=== PATIENT | male | born 1965 | race Caucasian/White ===

== ENCOUNTER → 2019-05-12 | Outpatient (CLI) | payer OTHER, MEDICARE ==
[~2019-05-12] MED LIST: BACLOFEN20 MG PO; CLARITIN10 MG PO; COMPAZINE IV; ENOXAPARIN80 MG/0.1 SUBQ; FISH OIL 1,001000 M2 PO; LIORESAL 10 MG10 MG PO; PROCHLORPERAZIN10 MG PO; TYLENOL325 MG PO; XARELTO10 MG PO; [UNRECOGNIZED DRUG - OTHER] PO
[2019-05-12 14:21] LABS: ABSOLUTE NEUTROPHILS 5.3 thou/uL (1.4-8.2); BASOPHILS 0.7 % (0.0-2.0); EOSINOPHILS 5.2 % (0.0-3.0); HEMATOCRIT 40.5 % (42.0-52.0); HEMOGLOBIN 13.7 gm/dL (14.0-18.0); LYMPHOCYTES 19.2 % (24.0-44.0); MCH 30.9 pg (26.0-34.0); MCHC 33.8 g/dL (28.0-37.0); MCV 91.6 fL (80.0-100.0); MONOCYTES 9.7 % (1.0-8.0); PLATELET COUNT 375 thou/uL (150-400); POLYS 65.2 % (36.0-66.0); RBC 4.43 mil/uL (4.50-6.00); RDW 12.3 % (10.5-14.5); WBC 8.1 thou/uL (4.0-11.0)
[2019-05-12 14:52] LABS: ANION GAP 10 mmol/L (7-16); BUN 17 mg/dL (7-18); CHLORIDE 98 mmol/L (98-107); CHOLESTEROL 143 mg/dL (<200); CO2 28 mmol/L (21-32); GLUCOSE 211 mg/dL (74-106); HDL CHOLESTEROL 42 mg/dL (>40); LDL CHOLESTEROL 90 mg/dL (<100); POTASSIUM 4.8 mmol/L (3.5-5.1); SGOT 13 U/L (15-37); SGPT 15 U/L (30-65); SODIUM 136 mmol/L (136-145); TC:HDL 3.4 Ratio (Not establshd); TOTAL BILIRUBIN 0.6 mg/dL (<0.1-1.0); TOTAL PROTEIN 8.1 g/dL (6.4-8.2); TRIGLYCERIDE 59 mg/dL (<150); VLDL 12 mg/dL (<40)
[2019-05-12 14:54] LABS: SERUM ASSESSMENT Clear
[2019-05-13 01:10] LABS: GLYCOHEMOGLOBIN (HGB A1C) 6.8 % (4.8-5.6)
== END ==
LOC: CAT 12:13
PROVIDERS: Family Medicine
DX: J98.11 Atelectasis (principal); I63.422 Cerebral infarction due to embolism of left anterior cerebral artery; I26.99 Other pulmonary embolism without acute cor pulmonale; I25.10 Atherosclerotic heart disease of native coronary artery without angina pectoris; E11.9 Type 2 diabetes mellitus without complications

== ENCOUNTER → 2020-05-19 | Outpatient (CLI) | payer OTHER, MEDICARE | LOC: ULTRA 15:03 | PROVIDERS: ATTEND Family Medicine | DX: M79.605 Pain in left leg (principal) ==